=== PATIENT | female | born 1940 | race Two or more races ===

== ENCOUNTER 2016-07-02 20:55 | Emergency (ER) | payer MEDICARE, OTHER ==
[~2016-07-02] VITALS: Ht 165.1 cm; Wt 61.7 kg
[~2016-07-02 20:55] MED LIST: COZAAR; EFFEXOR; TRIAPOW43
[2016-07-02 21:15] VITALS: BP 160/98
[2016-07-02 22:18] LABS: Basophils # (auto) 0 uL; DEFINITIVE VIEW TRANSMISSION; Eosinophils # (auto) 0.7 uL; Hematocrit 35.2 % (36.0-46.0); Hemoglobin 12.1 g/dL (12.2-16.2); Lymphocytes # (auto) 1.2 uL; Lymphocytes % (auto) 23.1 % (10.0-50.0); Mean Corpuscular Hemoglobin 29.1 pg (28.0-32.0); Mean Corpuscular Hgb Conc. 34.3 g/dL (32.0-36.0); Mean Corpuscular Volume 84.8 fL (80.0-100.0); Monocytes # (auto) 0.4 uL; Monocytes % (auto) 8.6 % (0.0-12.0); Neutrophils # (auto) 2.7 uL; Neutrophils % (auto) 53.3 % (37.0-80.0); Platelet Count (auto) 204 10^3/uL (140-450); Red Cell Distribution Width 13.4 % (11.6-16.0); White Blood Cell 5.1 10^3/uL (4.4-10.8)
[2016-07-02 22:35] LABS: Albumin 3.3 g/dL (3.4-5.0); Anion Gap 10 (5-15); Aspartate Aminotransferase 13 U/L (15-37); BUN/Creatinine Ratio 23.3; Blood Urea Nitrogen 21 mg/dL (7-18); Calcium 8.6 mg/dL (8.5-10.1); Carbon Dioxide 24 mmol/L (21-32); Chloride 108 mmol/L (98-107); GFR African American 78 mL/min; GFR Non-African American 64 mL/min; Glucose 118 mg/dL (74-106); Potassium 3.3 mmol/L (3.5-5.1); Sodium 142 mmol/L (136-145)
[2016-07-02 22:37] LABS: Urine Bilirubin Negative (Negative); Urine Blood Negative /uL (Negative); Urine Color Yellow (Yellow); Urine Glucose Normal (Normal); Urine Ketone Negative (Negative); Urine Mucus FEW (None Seen); Urine Nitrite Negative (Negative); Urine RBC 1 /hpf (0 - 4); Urine Squamous Epithelial Cell FEW /hpf (<5); Urine Urobilinogen Normal (Negative)
[2016-07-02 22:41] LABS: Alkaline Phosphatase 118 U/L (45-117); Bilirubin, Total 0.2 mg/dL (0.2-1.0)
[2016-07-02 22:45] LABS: B-Type Natriuretic Peptide 17.16 pg/mL (0-100)
[2016-07-02 22:48] LABS: Temperature: 23.5 C (20.0-25.0)
== END 2016-07-03 01:11 | disposition left against medical advice (07) ==
LOC: ER 21:08
DX: R06.02 Shortness of breath (principal); Z53.21 Procedure and treatment not carried out due to patient leaving prior to being seen by health care provider
CPT/HCPCS: 36415; 71020; 80053; 81001; 83735; 83880; 84484; 85025; 85379; 93005

== ENCOUNTER 2016-07-03 15:02 | Emergency (ER) | payer MEDICARE, OTHER ==
[~2016-07-03] VITALS: Ht 167.6 cm; Wt 62.6 kg
[2016-07-03] MEDS ORDERED: POTASSIUM CHL 10% (20 MEQ/15ML) ORAL SOLN PO ONE (16:00)
[2016-07-03] MEDS ORDERED: ALBUTEROL SULF 2.5 MG/0.5ML(0.5%) NEB SOLN NEB ONE (16:00)
[2016-07-03] MEDS ORDERED: IPRATROPIUM BROM 0.5 MG/2.5ML INH SOL NEB ONE (16:00)
[2016-07-03] MEDS ORDERED: POTASSIUM CHL 20 Meq TABLET PO ONE (16:03)
[2016-07-03 16:18] VITALS: BP 150/84
== END 2016-07-03 18:31 | disposition home or self-care (01) ==
LOC: ER 15:20
DX: J45.901 Unspecified asthma with (acute) exacerbation (principal); N39.0 Urinary tract infection, site not specified; E87.6 Hypokalemia; E11.9 Type 2 diabetes mellitus without complications; J44.9 Chronic obstructive pulmonary disease, unspecified; E44.1 Mild protein-calorie malnutrition; Z68.22 Body mass index [BMI] 22.0-22.9, adult
CPT/HCPCS: 93005; 94640

== ENCOUNTER 2019-09-14 20:37 | Emergency (ER) | payer MEDICARE, OTHER ==
[~2019-09-14] VITALS: Ht 167.6 cm; Wt 60.8 kg
[2019-09-14] MEDS ORDERED: cloNIDine HCL 0.1 MG TAB PO ONE (21:15)
[2019-09-14 23:11] VITALS: BP 155/64
== END 2019-09-14 23:24 | disposition home or self-care (01) ==
LOC: ER 20:38
DX: L23.9 Allergic contact dermatitis, unspecified cause (principal); J44.9 Chronic obstructive pulmonary disease, unspecified; E11.9 Type 2 diabetes mellitus without complications; I10 Essential (primary) hypertension; Z90.49 Acquired absence of other specified parts of digestive tract

== ENCOUNTER 2020-08-06 10:57 | Inpatient (IN) | payer MEDICARE, OTHER ==
[~2020-08-06] VITALS: Ht 162.6 cm; Wt 59.0 kg
[2020-08-06] MEDS ORDERED: cloNIDine HCL 0.1 MG TAB PO ONE (11:15)
[2020-08-06 12:52] LABS: Urine WBC None Seen /hpf (0 - 5)
[2020-08-06 13:22] LABS: Urine Bacteria NONE SEEN /hpf (None Seen); Urine Blood Negative /uL (Negative); Urine Specific Gravity 1.008 (1.001-1.035)
[2020-08-06 13:23] LABS: Basophils # (auto) 0.1 10 ^3/uL (0-0.2); Basophils % (auto) 1.1 % (0.0-2.0); Eosinophils # (auto) 0.1 10 ^3/uL (0-0.8); Eosinophils % (auto) 2.4 % (0.0-7.0); Hematocrit 34.1 % (36.0-46.0); Hemoglobin 11.7 g/dL (12.2-16.2); Lymphocytes # (auto) 1.3 10 ^3/uL (0.4-5.4); Lymphocytes % (auto) 23.1 % (10.0-50.0); Mean Corpuscular Hemoglobin 30.2 pg (28.0-32.0); Mean Corpuscular Hgb Conc. 34.3 g/dL (32.0-36.0); Monocytes # (auto) 0.3 10 ^3/uL (0-1.3); Monocytes % (auto) 5.9 % (0.0-12.0); Neutrophils # (auto) 3.7 10 ^3/uL (1.6-8.6); Neutrophils % (auto) 67.5 % (37.0-80.0); Red Blood Cells 3.88 10^6/uL (4.0-5.20); Red Cell Distribution Width 14.6 % (11.8-14.3); White Blood Cell 5.5 10^3/uL (4.4-10.8)
[2020-08-06 13:32] LABS: INR 1.09 (0.9-1.15); Partial Thromboplastin Time 29.3 sec (23.0-31.2)
[2020-08-06 13:40] LABS: Albumin 3.4 g/dL (3.4-5.0); Anion Gap 4 (5-15); Blood Urea Nitrogen 16 mg/dL (7-18); Calcium 8.6 mg/dL (8.5-10.1); Carbon Dioxide 27 mmol/L (21-32); Chloride 109 mmol/L (98-107); Glucose 109 mg/dL (74-106); Magnesium 2.2 mg/dL (1.6-2.6); Potassium 3.9 mmol/L (3.5-5.1); Sodium 140 mmol/L (136-145)
[2020-08-06 13:42] LABS: Alanine Aminotransferase 29 U/L (13-56); Aspartate Aminotransferase 19 U/L (15-37); GFR African American 114 mL/min; GFR Non-African American 94 mL/min
[2020-08-06 13:47] LABS: Alkaline Phosphatase 71 U/L (45-117); Bilirubin, Total 0.6 mg/dL (0.2-1.0); Total Protein 7.2 g/dL (6.4-8.2)
[2020-08-06] MEDS ORDERED: IOHEXOL 350 MG/ML 100ML IJ ONE (14:46)
[2020-08-06] MEDS ORDERED: amLODIPine BESYLATE 5 MG TAB PO ONE (16:45)
[2020-08-06] MEDS ORDERED: MORPHINE SULFATE INJECTION 2 MG/ML SYRG IV PRN ×2 (16:45)
[2020-08-06] MEDS ORDERED: NITROGLYCERIN 0.4 MG SL TAB SL PRN (16:45)
[2020-08-06] MEDS ORDERED: FAMOTIDINE 20 MG TAB PO ONE (17:30)
[2020-08-06] MEDS: HYDROcodone-ACET 5/325MG TAB PO PRN (19:11)
[2020-08-06] MEDS: LABETALOL HCL 5 MG/ML 4ML SYRINGE IV PRN (20:03)
[2020-08-06] MEDS: ACETAMINOPHEN 500 MG TAB PO PRN (21:30)
[2020-08-06] MEDS ORDERED: CARV25TA PO (21:53)
[2020-08-06] MEDS ORDERED: CLON0.1T PO (21:57)
[2020-08-06] MEDS ORDERED: APIX2.5T PO (21:57)
[2020-08-06] MEDS ORDERED: BUSP10TA90 PO (21:58)
[2020-08-06 22:00] VITALS: BP 167/84
[2020-08-06] MEDS ORDERED: GABA300C10 PO (22:08)
[2020-08-06] MEDS ORDERED: BACL10TA PO (22:08)
[2020-08-06] MEDS ORDERED: ATOR40TA52 PO (22:08)
[2020-08-06] MEDS ORDERED: NIFE90TA49 PO (22:08)
[2020-08-06] MEDS ORDERED: MECL12.514 PO (22:08)
[2020-08-06] MEDS ORDERED: LOSA25TA38 PO (22:08)
[2020-08-06] MEDS ORDERED: DONE1TAB88 PO (22:08)
[2020-08-06] MEDS ORDERED: TEMAZEPAM 15 MG CAP PO ONE (22:45)
[2020-08-06] MEDS ORDERED: ONDANSETRON ODT 4 MG TAB PO ONE (22:45)
[2020-08-07 05:00] VITALS: BP 136/68
[2020-08-07] MEDS: LABETALOL HCL 5 MG/ML 4ML SYRINGE IV PRN ×4 (08:23→18:05)
[2020-08-07] MEDS: ACETAMINOPHEN 500 MG TAB PO PRN (08:23)
[2020-08-07 08:49] VITALS: BP 164/71
[2020-08-07] MEDS: FAMOTIDINE 20 MG TAB PO SCH (09:45)
[2020-08-07] MEDS ORDERED: LOSARTAN POTASSIUM 25 MG TAB PO SCH (10:00)
[2020-08-07] MEDS ORDERED: amLODIPine BESYLATE 5 MG TAB PO SCH (10:00)
[2020-08-07] MEDS: HYDROcodone-ACET 5/325MG TAB PO PRN (10:09)
[2020-08-07] MEDS: ONDANSETRON HCL 4 MG/2 ML VIAL IV PRN ×2 (12:14→20:48)
[2020-08-07 12:51] VITALS: BP 175/78
[2020-08-07] MEDS: ENOXAPARIN SOD 30 MG/0.3 ML SYRINGE SC SCH (16:10)
[2020-08-07 17:32] VITALS: BP 197/82
[2020-08-07] MEDS: CARVEDILOL 12.5 MG TAB PO SCH (21:08)
[2020-08-07] MEDS: GABAPENTIN 300 MG CAP PO SCH (21:08)
[2020-08-07] MEDS ORDERED: TEMAZEPAM 15 MG CAP PO ONE (21:15)
[2020-08-07 22:00] VITALS: BP 157/73
[2020-08-08 05:00] VITALS: BP 133/65
[2020-08-08 05:56] LABS: Basophils # (auto) 0 10 ^3/uL (0-0.2); Eosinophils # (auto) 0.1 10 ^3/uL (0-0.8); Eosinophils % (auto) 3.2 % (0.0-7.0); Hematocrit 32.8 % (36.0-46.0); Hemoglobin 11.5 g/dL (12.2-16.2); Lymphocytes # (auto) 1.5 10 ^3/uL (0.4-5.4); Lymphocytes % (auto) 32.8 % (10.0-50.0); Mean Corpuscular Hemoglobin 30.7 pg (28.0-32.0); Mean Corpuscular Volume 87.7 fL (80.0-100.0); Monocytes # (auto) 0.5 10 ^3/uL (0-1.3); Monocytes % (auto) 11.1 % (0.0-12.0); Neutrophils # (auto) 2.4 10 ^3/uL (1.6-8.6); Neutrophils % (auto) 51.9 % (37.0-80.0); Nucleated Red Blood Cells % 0.1 %; Red Blood Cells 3.74 10^6/uL (4.0-5.20); Red Cell Distribution Width 14.5 % (11.8-14.3); White Blood Cell 4.6 10^3/uL (4.4-10.8)
[2020-08-08 06:22] LABS: Magnesium 2.4 mg/dL (1.6-2.6); Potassium 3.9 mmol/L (3.5-5.1)
[2020-08-08] MEDS: GABAPENTIN 300 MG CAP PO SCH ×3 (06:23→21:55)
[2020-08-08 06:29] LABS: Albumin 3.5 g/dL (3.4-5.0); BUN/Creatinine Ratio 20.8; Bilirubin, Total 0.8 mg/dL (0.2-1.0); Calcium 8.9 mg/dL (8.5-10.1); Total Protein 6.8 g/dL (6.4-8.2)
[2020-08-08 09:17] VITALS: BP 190/79
[2020-08-08] MEDS: NIFEdipine ER 30 MG TAB PO SCH (09:21)
[2020-08-08] MEDS: CARVEDILOL 12.5 MG TAB PO SCH ×2 (09:21→21:56)
[2020-08-08] MEDS: FAMOTIDINE 20 MG TAB PO SCH (09:21)
[2020-08-08] MEDS: ENOXAPARIN SOD 30 MG/0.3 ML SYRINGE SC SCH (09:22)
[2020-08-08] MEDS ORDERED: LACTULOSE 20Gm/30ML SOLN PO ONE (12:45)
[2020-08-08 13:00] VITALS: BP 140/72
[2020-08-08] MEDS ORDERED: LOSARTAN POTASSIUM 25 MG TAB PO ONE (13:00)
[2020-08-08] MEDS ORDERED: LACTULOSE 20Gm/30ML SOLN PO PRN (13:00)
[2020-08-08 14:02] LABS: Alcohol, Urine < 3.0 mg/dL (0-10); Amphetamine Screen, Urine NEGATIVE (NEGATIVE); Barbiturate Scree,Urine NEGATIVE (NEGATIVE); Benzodiazephine Screen, Urine POSITIVE (NEGATIVE); Cocaine Screen, Urine NEGATIVE (NEGATIVE); Opiate Scree,Urine NEGATIVE (NEGATIVE); Phencyclidine Screen, Urine NEGATIVE (NEGATIVE)
[2020-08-08 14:06] LABS: Cannabinoid Screen, Urine POSITIVE (NEGATIVE)
[2020-08-08 16:29] VITALS: BP 141/74
[2020-08-08] MEDS: ACETAMINOPHEN 500 MG TAB PO PRN (18:54)
[2020-08-08] MEDS: busPIRone HCL 10 MG TAB PO SCH (21:55)
[2020-08-08] MEDS: DOCUSATE SOD 100 MG CAP PO SCH (21:55)
[2020-08-08] MEDS: APIXABAN 2.5 MG TAB PO SCH (21:56)
[2020-08-08] MEDS: DONEPEZIL HYDROCHLORIDE 5 MG TAB PO SCH (21:57)
[2020-08-08 22:00] VITALS: BP 158/77
[2020-08-09] MEDS: HYDROcodone-ACET 5/325MG TAB PO PRN ×3 (04:25→21:26)
[2020-08-09 05:00] VITALS: BP 139/73
[2020-08-09] MEDS: GABAPENTIN 300 MG CAP PO SCH ×2 (05:40→13:36)
[2020-08-09 09:00] VITALS: BP 145/61
[2020-08-09] MEDS: busPIRone HCL 10 MG TAB PO SCH ×2 (09:41→21:20)
[2020-08-09] MEDS: APIXABAN 2.5 MG TAB PO SCH ×2 (09:41→21:20)
[2020-08-09] MEDS: FAMOTIDINE 20 MG TAB PO SCH (09:41)
[2020-08-09] MEDS: NIFEdipine ER 30 MG TAB PO SCH (09:42)
[2020-08-09] MEDS: CARVEDILOL 12.5 MG TAB PO SCH ×2 (09:43→21:20)
[2020-08-09] MEDS: LOSARTAN POTASSIUM 25 MG TAB PO SCH (09:43)
[2020-08-09] MEDS: DOCUSATE SOD 100 MG CAP PO SCH (09:43)
[2020-08-09 13:00] VITALS: BP 150/63
[2020-08-09] MEDS: LABETALOL HCL 5 MG/ML 4ML SYRINGE IV PRN ×2 (15:21→17:49)
[2020-08-09 16:32] VITALS: BP 168/63
[2020-08-09 20:05] VITALS: BP 163/62
[2020-08-09] MEDS: GABAPENTIN 400 MG CAP PO SCH (21:18)
[2020-08-09] MEDS: DONEPEZIL HYDROCHLORIDE 5 MG TAB PO SCH (21:21)
[2020-08-09 21:56] VITALS: BP 171/76
[2020-08-10] MEDS: HYDROcodone-ACET 5/325MG TAB PO PRN (04:15)
[2020-08-10 05:03] VITALS: BP 149/65
[2020-08-10 06:14] LABS: Magnesium 2.6 mg/dL (1.6-2.6); Potassium 3.8 mmol/L (3.5-5.1)
[2020-08-10 09:00] VITALS: BP 152/73
[2020-08-10] MEDS: APIXABAN 2.5 MG TAB PO SCH (09:33)
[2020-08-10] MEDS: GABAPENTIN 400 MG CAP PO SCH (09:33)
[2020-08-10] MEDS: NIFEdipine ER 30 MG TAB PO SCH (09:34)
[2020-08-10] MEDS: FAMOTIDINE 20 MG TAB PO SCH (09:34)
[2020-08-10] MEDS: CARVEDILOL 12.5 MG TAB PO SCH (09:34)
[2020-08-10] MEDS: LOSARTAN POTASSIUM 25 MG TAB PO SCH (09:35)
[2020-08-10] MEDS: busPIRone HCL 10 MG TAB PO SCH (09:35)
[2020-08-10] MEDS ORDERED: NIFE90TA49 PO (11:05)
[2020-08-10 12:02] VITALS: BP 152/73
== END 2020-08-10 13:05 | disposition home health service (06) | DRG 305 ==
LOC: ER 10:57 → TELE 16:43 → TELE-WESTW 20:11
PROVIDERS: ADMIT Nurse Practitioner Acute Care; ATTEND Internal Medicine
DX: I16.9 Hypertensive crisis, unspecified (principal); R64 Cachexia; D64.9 Anemia, unspecified; I73.9 Peripheral vascular disease, unspecified; Z20.822 Contact with and (suspected) exposure to COVID-19; I25.10 Atherosclerotic heart disease of native coronary artery without angina pectoris; E11.41 Type 2 diabetes mellitus with diabetic mononeuropathy; D17.79 Benign lipomatous neoplasm of other sites; F12.90 Cannabis use, unspecified, uncomplicated; J44.9 Chronic obstructive pulmonary disease, unspecified; E11.51 Type 2 diabetes mellitus with diabetic peripheral angiopathy without gangrene; F32.9 Major depressive disorder, single episode, unspecified; G57.91 Unspecified mononeuropathy of right lower limb; I70.8 Atherosclerosis of other arteries; K59.00 Constipation, unspecified; Z86.718 Personal history of other venous thrombosis and embolism; Z90.710 Acquired absence of both cervix and uterus; Z90.49 Acquired absence of other specified parts of digestive tract; Z79.899 Other long term (current) drug therapy; Z79.891 Long term (current) use of opiate analgesic; Z79.01 Long term (current) use of anticoagulants; Z71.51 Drug abuse counseling and surveillance of drug abuser; Z68.22 Body mass index [BMI] 22.0-22.9, adult
CPT/HCPCS: 36415; 71045; 71275; 80053; 80061; 80307; 81001; 82306; 83735; 83880; 84132; 84443; 84484; 85025; 85049; 85379; 85610; 85730; 87426; 93005; 96374; 97110; 97116; 97530; G0378; J2405; J3490; Q0162

== ENCOUNTER 2021-12-07 17:43 | Emergency (ER) | payer MEDICARE, OTHER ==
[~2021-12-07 17:43] MED LIST changes: +APIX2.5T PO; +ATOR40TA52 PO; +BACL10TA PO; +BUSP10TA90 PO; +CARV25TA PO; +DONE1TAB88 PO; +GABA300C10 PO; +LOSA25TA38 PO; +MECL12.514 PO; +NIFE90TA49 PO
[2021-12-07] MEDS ORDERED: cloNIDine HCL 0.1 MG TAB PO ONE ×2 (19:30→21:00)
[2021-12-07] MEDS ORDERED: HYDROcodone-ACET 5/325MG TAB PO ONE (21:00)
[2021-12-07 22:44] VITALS: BP 164/73
== END 2021-12-07 22:46 | disposition home or self-care (01) ==
LOC: ER 17:43
DX: I10 Essential (primary) hypertension (principal); G89.29 Other chronic pain; M79.604 Pain in right leg; J44.9 Chronic obstructive pulmonary disease, unspecified; Z90.49 Acquired absence of other specified parts of digestive tract; Z90.710 Acquired absence of both cervix and uterus; Z79.899 Other long term (current) drug therapy
CPT/HCPCS: 93971

== ENCOUNTER → 2021-12-11 | Outpatient (CLI) | payer MEDICARE, OTHER | END | disposition home or self-care (01) | LOC: Rad HDHVI 13:34 | PROVIDERS: ATTEND Internal Medicine Cardiovascular Disease | DX: I08.0 Rheumatic disorders of both mitral and aortic valves (principal); I11.9 Hypertensive heart disease without heart failure | CPT/HCPCS: 93306 ==

== ENCOUNTER → 2021-12-15 | Outpatient (CLI) | payer MEDICARE, OTHER ==
[~2021-12-15] VITALS: Ht 165.1 cm; Wt 59.4 kg
[~2021-12-15] MED LIST changes: +ADENOSINE 50 MG in GIVE UN-DILUTED 0 ML IV ONE; +ADENOSINE 90 MG/30 ML INJ IV ONE; +cloNIDine HCL 0.1 MG TAB ONE
== END | disposition home or self-care (01) ==
LOC: Rad HDHVI 13:25
PROVIDERS: ATTEND Internal Medicine Cardiovascular Disease
DX: I25.10 Atherosclerotic heart disease of native coronary artery without angina pectoris (principal); I10 Essential (primary) hypertension; E78.5 Hyperlipidemia, unspecified; F17.210 Nicotine dependence, cigarettes, uncomplicated
CPT/HCPCS: 78452; 93005; 96374; 96375; A9500; J0153

== ENCOUNTER → 2022-08-11 | Outpatient (CLI) | payer MEDICARE, OTHER ==
[~2022-08-11] MED LIST changes: -ADENOSINE 50 MG in GIVE UN-DILUTED 0 ML IV ONE; -ADENOSINE 90 MG/30 ML INJ IV ONE; +GABA-1250 PO; -GABA300C10 PO; +LOSA25TA15 PO; -LOSA25TA38 PO; -MECL12.514 PO; +MECL1TAB31 PO; -NIFE90TA49 PO; +NIFE90TA75 PO; -cloNIDine HCL 0.1 MG TAB ONE
== END | disposition home or self-care (01) ==
LOC: Rad HDHVI 14:59
PROVIDERS: ATTEND Internal Medicine Cardiovascular Disease
DX: I70.203 Unspecified atherosclerosis of native arteries of extremities, bilateral legs (principal); R60.9 Edema, unspecified
CPT/HCPCS: 93880; 93925

== ENCOUNTER → 2022-09-14 | Outpatient (CLI) | payer MEDICARE, BC ==
[~2022-09-14] MED LIST changes: +READI-CAT 2 (BARIUM SULF)(VANILLA SMOOTHIE) 450ML ONE
== END | disposition home or self-care (01) ==
LOC: Rad HDHVI 10:05
PROVIDERS: ATTEND Internal Medicine Cardiovascular Disease
DX: D35.02 Benign neoplasm of left adrenal gland (principal); M47.816 Spondylosis without myelopathy or radiculopathy, lumbar region; I70.0 Atherosclerosis of aorta
CPT/HCPCS: 74176

== ENCOUNTER 2023-01-21 07:08 | Inpatient (IN) | payer MEDICARE, BC ==
[~2023-01-21] VITALS: Ht 152.4 cm; Wt 59.6 kg
[2023-01-21] VITALS (10 sets, daily range): BP systolic 138; BP diastolic 65; PULSE 111–129; RESP 16–21; TEMP 99.1; O2SAT 89–100
[~2023-01-21 07:08] MED LIST changes: +GABA-339 PO; +HYDR-4297 PO; +MECL-126 PO; -READI-CAT 2 (BARIUM SULF)(VANILLA SMOOTHIE) 450ML ONE; +SACU1TAB7 PO
[2023-01-21] MEDS ORDERED: SODIUM CHLORIDE 0.9% 1,000 ML IV ONE ×3 (07:45→08:00)
[2023-01-21] MEDS ORDERED: cefTRIAXone 1GM/50ML D5W 50 ML IV ONE ×2 (08:00→11:08)
[2023-01-21] MEDS ORDERED: metroNIDAZOLE 500MG/100ML 100 ML IV ONE (08:00)
[2023-01-21 08:06] LABS: Basophils # (auto) 0 10 ^3/uL (0-0.2); Basophils % (auto) 0.1 % (0.0-2.0); Eosinophils # (auto) 0 10 ^3/uL (0-0.8); Hematocrit 34.3 % (36.0-46.0); Hemoglobin 11.2 g/dL (12.2-16.2); Lymphocytes # (auto) 0.4 10 ^3/uL (0.4-5.4); Lymphocytes % (auto) 3.1 % (10.0-50.0); Mean Corpuscular Hemoglobin 28.3 pg (28.0-32.0); Mean Corpuscular Hgb Conc. 32.5 g/dL (32.0-36.0); Mean Corpuscular Volume 87.1 fL (80.0-100.0); Monocytes # (auto) 0.8 10 ^3/uL (0-1.3); Monocytes % (auto) 5.8 % (0.0-12.0); Neutrophils # (auto) 12.1 10 ^3/uL (1.6-8.6); Nucleated Red Blood Cells % 0.1 %; Red Blood Cells 3.94 10^6/uL (4.0-5.20); Red Cell Distribution Width 14.3 % (11.8-14.3); White Blood Cell 13.3 10^3/uL (4.4-10.8)
[2023-01-21 08:19] LABS: INR 1.06 (0.9-1.15); Partial Thromboplastin Time 34.1 SEC (24.5-34.5); Prothrombin Time 11.1 sec (9.3-11.8)
[2023-01-21 08:22] LABS: Alanine Aminotransferase 24 U/L (7-40); Albumin 4.1 g/dL (3.2-4.8); Alkaline Phosphatase 90 U/L (46-116); Anion Gap 13 (5-15); Aspartate Aminotransferase 14 U/L (13-40); BUN/Creatinine Ratio 38.7 (10.0-20.0); Blood Alcohol < 3.0 mg/dL (<10); Blood Urea Nitrogen 53 mg/dL (9-23); Calcium 9.2 mg/dL (8.5-10.1); Carbon Dioxide 19 mmol/L (20-30); Chloride 104 mmol/L (98-107); Glucose 170 mg/dL (74-106); Potassium 3.4 mmol/L (3.5-5.1); Sodium 136 mmol/L (136-145)
[2023-01-21 08:23] LABS: Bilirubin, Total 0.6 mg/dL (0.2-1.0); Total Protein 6.5 g/dL (5.7-8.2)
[2023-01-21 08:50] LABS: Magnesium 2.3 mg/dL (1.6-2.6)
[2023-01-21] MEDS ORDERED: ALBUTEROL SULF 2.5 MG/0.5ML(0.5%) NEB SOLN NEB PRN ×2 (10:45→11:15)
[2023-01-21] MEDS ORDERED: SODIUM CHLORIDE 0.9% 1,000 ML IV SCH (11:15)
[2023-01-21] MEDS ORDERED: ACETAMINOPHEN 325 MG TAB PO PRN (11:15)
[2023-01-21] MEDS ORDERED: MECLIZINE HCL 25 MG TAB PO PRN (11:15)
[2023-01-21] MEDS ORDERED: AZITHROMYCIN 500MG/ 250ML 250 ML IV ONE ×2 (11:15→11:31)
[2023-01-21] MEDS ORDERED: POTASSIUM EFFERVESENT TAB 25 MEQ PO ONE (11:15)
[2023-01-21 11:40] LABS: Urine Amorphous Crystal FEW /hpf (None Seen); Urine Bacteria FEW /hpf (None Seen); Urine Blood Negative /uL (Negative); Urine Clarity HAZY (Clear); Urine Color Yellow (Yellow); Urine Hyaline Cast FEW /lpf (0 - 2); Urine Protein, UAD 1+ (Negative); Urine Specific Gravity 1.017 (1.001-1.035); Urine Urobilinogen Normal (Negative); Urine WBC 6 /hpf (0 - 5); Urine pH 5.5 (5.0-8.0)
[2023-01-21] MEDS ORDERED: ALBUTEROL SULF 2.5 MG/0.5ML(0.5%) NEB SOLN ONE ×3 (11:42→22:08)
[2023-01-21] MEDS ORDERED: cefTRIAXone 1GM/50ML D5W 50 ML IV SCH (11:45)
[2023-01-21] MEDS: ALBUTEROL SULF 2.5 MG/0.5ML(0.5%) NEB SOLN NEB SCH ×3 (11:46→23:43)
[2023-01-21] MEDS ORDERED: POTASSIUM EFFERVESENT TAB 25 MEQ ONE (11:54)
[2023-01-21 12:23] LABS: Amphetamine Screen, Urine Neg (NEGATIVE); Barbiturate Scree,Urine Neg (NEGATIVE); Benzodiazephine Screen, Urine Neg (NEGATIVE); Cocaine Screen, Urine Neg (NEGATIVE)
[2023-01-21 12:24] LABS: Cannabinoid Screen, Urine Neg (NEGATIVE); Opiate Scree,Urine Pos (NEGATIVE); Phencyclidine Screen, Urine Neg (NEGATIVE)
[2023-01-21] MEDS ORDERED: metroNIDAZOLE 500MG/100ML 100 ML IV SCH (14:00)
[2023-01-21] MEDS ORDERED: busPIRone HCL 10 MG TAB ONE ×2 (14:44→22:15)
[2023-01-21] MEDS: busPIRone HCL 10 MG TAB PO SCH ×2 (14:45→22:19)
[2023-01-21] MEDS: IPRATROPIUM BROM 0.5 MG/2.5ML INH SOL NEB SCH ×3 (16:53→23:42)
[2023-01-21] MEDS ORDERED: IPRATROPIUM BROM 0.5 MG/2.5ML INH SOL ONE ×2 (18:20→22:08)
[2023-01-21] MEDS: SODIUM CHLORIDE 0.9% 1,000 ML IV SCH (18:32)
[2023-01-21] MEDS ORDERED: Sacubitril-Valsartan (Entresto 49-51 mg) 1 TAB PO SCH (22:00)
[2023-01-21] MEDS ORDERED: ACETAMINOPHEN 500 MG TAB PO ONE (22:15)
[2023-01-21] MEDS ORDERED: SACUBITRIL-VALSARTAN 24mg/26mg TAB PO ONE ×2 (22:15→22:27)
[2023-01-21] MEDS ORDERED: GABAPENTIN 300 MG CAP ONE (22:15)
[2023-01-21] MEDS ORDERED: APIXABAN 2.5 MG TAB ONE (22:18)
[2023-01-21] MEDS ORDERED: CARVEDILOL 12.5 MG TAB ONE (22:18)
[2023-01-21] MEDS ORDERED: BACLOFEN 10 MG TAB ONE (22:18)
[2023-01-21] MEDS: GABAPENTIN 300 MG CAP PO SCH (22:19)
[2023-01-21] MEDS: BACLOFEN 10 MG TAB PO SCH (22:19)
[2023-01-21] MEDS: APIXABAN 2.5 MG TAB PO SCH (22:19)
[2023-01-21] MEDS: CARVEDILOL 12.5 MG TAB PO SCH (22:21)
[2023-01-22] VITALS (18 sets, daily range): BP systolic 145–164; BP diastolic 72–90; PULSE 63–101; RESP 16–20; TEMP 97.6–98.2; O2SAT 91–100
[2023-01-22] MEDS ORDERED: IPRATROPIUM BROM 0.5 MG/2.5ML INH SOL ONE ×6 (02:05→21:42)
[2023-01-22] MEDS ORDERED: ALBUTEROL SULF 2.5 MG/0.5ML(0.5%) NEB SOLN ONE ×6 (02:05→21:42)
[2023-01-22] MEDS: IPRATROPIUM BROM 0.5 MG/2.5ML INH SOL NEB SCH ×6 (02:21→23:38)
[2023-01-22] MEDS: ALBUTEROL SULF 2.5 MG/0.5ML(0.5%) NEB SOLN NEB SCH ×6 (02:21→23:38)
[2023-01-22 04:35] LABS: Basophils # (auto) 0 10 ^3/uL (0-0.2); Basophils % (auto) 0.1 % (0.0-2.0); Eosinophils # (auto) 0 10 ^3/uL (0-0.8); Hematocrit 32.9 % (36.0-46.0); Hemoglobin 10.8 g/dL (12.2-16.2); Lymphocytes # (auto) 0.5 10 ^3/uL (0.4-5.4); Lymphocytes % (auto) 6.7 % (10.0-50.0); Mean Corpuscular Hemoglobin 28.8 pg (28.0-32.0); Mean Corpuscular Hgb Conc. 32.8 g/dL (32.0-36.0); Mean Corpuscular Volume 87.9 fL (80.0-100.0); Monocytes # (auto) 0.6 10 ^3/uL (0-1.3); Monocytes % (auto) 7.6 % (0.0-12.0); Neutrophils # (auto) 6.7 10 ^3/uL (1.6-8.6); Neutrophils % (auto) 85.6 % (37.0-80.0); Red Blood Cells 3.74 10^6/uL (4.0-5.20); Red Cell Distribution Width 14.7 % (11.8-14.3); White Blood Cell 7.8 10^3/uL (4.4-10.8)
[2023-01-22 04:38] LABS: Alanine Aminotransferase 20 U/L (7-40); Albumin 3.9 g/dL (3.2-4.8); Alkaline Phosphatase 84 U/L (46-116); Anion Gap 8 (5-15); Aspartate Aminotransferase 19 U/L (13-40); BUN/Creatinine Ratio 27.6 (10.0-20.0); Calcium 8.8 mg/dL (8.7-10.4); Carbon Dioxide 20 mmol/L (20-30); Chloride 111 mmol/L (98-107); Glucose 163 mg/dL (74-106); Sodium 139 mmol/L (136-145)
[2023-01-22 04:39] LABS: Bilirubin, Total 0.5 mg/dL (0.2-1.0); Total Protein 6.6 g/dL (5.7-8.2)
[2023-01-22 05:07] LABS: Blood Urea Nitrogen 24 mg/dL (9-23)
[2023-01-22] MEDS: busPIRone HCL 10 MG TAB PO SCH ×3 (06:00→22:59)
[2023-01-22] MEDS ORDERED: busPIRone HCL 10 MG TAB ONE ×3 (06:24→22:05)
[2023-01-22] MEDS ORDERED: hydrALAZINE HCL 20 MG/ML VL ONE ×3 (06:28→23:04)
[2023-01-22] MEDS: hydrALAZINE HCL 20 MG/ML VL IV PRN ×2 (07:07→23:07)
[2023-01-22] MEDS ORDERED: HYDROcodone-ACET 5/325MG TAB ONE ×3 (07:09→21:43)
[2023-01-22] MEDS: HYDROcodone-ACET 5/325MG TAB PO PRN ×3 (07:10→21:58)
[2023-01-22] MEDS ORDERED: cefTRIAXone 1GM/50ML D5W 50 ML IV SCH (09:00)
[2023-01-22] MEDS: SODIUM CHLORIDE 0.9% 1,000 ML IV SCH (09:10)
[2023-01-22] MEDS ORDERED: cefTRIAXone 1GM/50ML D5W 50 ML IV ONE (09:11)
[2023-01-22] MEDS: cefTRIAXone 1GM/50ML D5W 50 ML IV SCH (09:12)
[2023-01-22] MEDS: LOSARTAN POTASSIUM 25 MG TAB PO SCH (10:00)
[2023-01-22] MEDS ORDERED: DONEPEZIL HYDROCHLORIDE 5 MG TAB ONE (12:23)
[2023-01-22] MEDS ORDERED: APIXABAN 2.5 MG TAB ONE ×3 (12:23→22:09)
[2023-01-22] MEDS ORDERED: ENOXAPARIN SOD 30 MG/0.3 ML SYRINGE ONE (12:24)
[2023-01-22] MEDS ORDERED: GABAPENTIN 300 MG CAP ONE ×2 (12:25→22:09)
[2023-01-22] MEDS ORDERED: ATORVASTATIN 20 MG TAB ONE (12:25)
[2023-01-22] MEDS: GABAPENTIN 300 MG CAP PO SCH ×2 (12:28→22:59)
[2023-01-22] MEDS: ATORVASTATIN 20 MG TAB PO SCH (12:28)
[2023-01-22] MEDS: DONEPEZIL HYDROCHLORIDE 5 MG TAB PO SCH (12:28)
[2023-01-22] MEDS: ENOXAPARIN SOD 30 MG/0.3 ML SYRINGE SC SCH (12:29)
[2023-01-22] MEDS ORDERED: CARVEDILOL 12.5 MG TAB ONE (12:41)
[2023-01-22] MEDS ORDERED: AZITHROMYCIN 500MG/ 250ML 250 ML IV ONE (12:42)
[2023-01-22] MEDS ORDERED: BACLOFEN 10 MG TAB ONE (12:42)
[2023-01-22] MEDS: AZITHROMYCIN 500MG/ 250ML 250 ML IV SCH (12:47)
[2023-01-22] MEDS: BACLOFEN 10 MG TAB PO SCH ×2 (12:47→22:00)
[2023-01-22] MEDS: CARVEDILOL 12.5 MG TAB PO SCH ×2 (12:48→22:00)
[2023-01-22] MEDS: APIXABAN 2.5 MG TAB PO SCH ×2 (12:49→22:59)
[2023-01-22] MEDS ORDERED: hydrALAZINE HCL 10 MG TAB ONE (22:10)
[2023-01-23] VITALS (16 sets, daily range): BP systolic 151–187; BP diastolic 66–88; PULSE 67–88; RESP 16–20; TEMP 97.9–98.5; O2SAT 91–98
[2023-01-23] MEDS: SODIUM CHLORIDE 0.9% 1,000 ML IV SCH ×2 (01:20→18:09)
[2023-01-23] MEDS: IPRATROPIUM BROM 0.5 MG/2.5ML INH SOL NEB SCH ×6 (02:00→22:50)
[2023-01-23] MEDS: ALBUTEROL SULF 2.5 MG/0.5ML(0.5%) NEB SOLN NEB SCH ×6 (02:00→22:50)
[2023-01-23] MEDS: hydrALAZINE HCL 20 MG/ML VL IV PRN ×2 (05:35→20:27)
[2023-01-23] MEDS: busPIRone HCL 10 MG TAB PO SCH ×3 (05:36→20:31)
[2023-01-23] MEDS: HYDROcodone-ACET 5/325MG TAB PO PRN (08:38)
[2023-01-23] MEDS: cefTRIAXone 1GM/50ML D5W 50 ML IV SCH (09:36)
[2023-01-23] MEDS: DONEPEZIL HYDROCHLORIDE 5 MG TAB PO SCH (11:20)
[2023-01-23] MEDS: GABAPENTIN 300 MG CAP PO SCH ×2 (11:22→20:32)
[2023-01-23] MEDS: BACLOFEN 10 MG TAB PO SCH ×2 (11:22→20:35)
[2023-01-23] MEDS: CARVEDILOL 12.5 MG TAB PO SCH ×2 (11:22→20:32)
[2023-01-23] MEDS: ATORVASTATIN 20 MG TAB PO SCH (11:23)
[2023-01-23] MEDS: APIXABAN 2.5 MG TAB PO SCH (11:23)
[2023-01-23] MEDS: LOSARTAN POTASSIUM 25 MG TAB PO SCH (11:23)
[2023-01-23] MEDS: AZITHROMYCIN 500MG/ 250ML 250 ML IV SCH (11:24)
[2023-01-23] MEDS: ENOXAPARIN SOD 30 MG/0.3 ML SYRINGE SC SCH (11:24)
[2023-01-23 11:28] LABS: COVID19 ANTIGEN SOFIA FIA NEGATIVE (NEGATIVE)
[2023-01-24] VITALS (22 sets, daily range): BP systolic 124–186; BP diastolic 55–86; PULSE 70–91; RESP 18–19; TEMP 97.9–98.3; O2SAT 90–100
[2023-01-24] MEDS: IPRATROPIUM BROM 0.5 MG/2.5ML INH SOL NEB SCH ×6 (02:51→21:53)
[2023-01-24] MEDS: ALBUTEROL SULF 2.5 MG/0.5ML(0.5%) NEB SOLN NEB SCH ×6 (02:51→21:53)
[2023-01-24] MEDS: hydrALAZINE HCL 20 MG/ML VL IV PRN ×2 (04:23→23:05)
[2023-01-24] MEDS: busPIRone HCL 10 MG TAB PO SCH ×3 (05:00→21:34)
[2023-01-24] MEDS ORDERED: MECLIZINE HCL 25 MG TAB PO PRN (08:00)
[2023-01-24] MEDS: cefTRIAXone 1GM/50ML D5W 50 ML IV SCH (09:32)
[2023-01-24] MEDS: CARVEDILOL 12.5 MG TAB PO SCH ×2 (09:34→21:35)
[2023-01-24] MEDS: DONEPEZIL HYDROCHLORIDE 5 MG TAB PO SCH (09:34)
[2023-01-24] MEDS: BACLOFEN 10 MG TAB PO SCH ×2 (09:34→21:36)
[2023-01-24] MEDS: LOSARTAN POTASSIUM 25 MG TAB PO SCH (09:34)
[2023-01-24] MEDS: GABAPENTIN 300 MG CAP PO SCH ×2 (09:34→21:34)
[2023-01-24] MEDS: ENOXAPARIN SOD 40 MG/0.4 ML SYRINGE SC SCH (09:35)
[2023-01-24] MEDS: ATORVASTATIN 20 MG TAB PO SCH (09:35)
[2023-01-24] MEDS: SODIUM CHLORIDE 0.9% 1,000 ML IV SCH (09:36)
[2023-01-24] MEDS: HYDROcodone-ACET 5/325MG TAB PO PRN ×2 (12:43→20:01)
[2023-01-24] MEDS: AZITHROMYCIN 500MG/ 250ML 250 ML IV SCH (12:50)
[2023-01-24 14:23] LABS: Base Excess -2.7 mmol/L (-2.0-2.0)
[2023-01-25] VITALS (12 sets, daily range): BP systolic 141–160; BP diastolic 64–70; PULSE 69–82; RESP 17–19; TEMP 98.1–98.6; O2SAT 90–100
[2023-01-25] MEDS: IPRATROPIUM BROM 0.5 MG/2.5ML INH SOL NEB SCH ×4 (02:06→14:47)
[2023-01-25] MEDS: ALBUTEROL SULF 2.5 MG/0.5ML(0.5%) NEB SOLN NEB SCH ×4 (02:06→14:47)
[2023-01-25] MEDS: SODIUM CHLORIDE 0.9% 1,000 ML IV SCH (03:20)
[2023-01-25] MEDS: hydrALAZINE HCL 20 MG/ML VL IV PRN (05:07)
[2023-01-25] MEDS: busPIRone HCL 10 MG TAB PO SCH (05:07)
[2023-01-25] MEDS: cefTRIAXone 1GM/50ML D5W 50 ML IV SCH (09:28)
[2023-01-25] MEDS: HYDROcodone-ACET 5/325MG TAB PO PRN (09:28)
[2023-01-25] MEDS ORDERED: AZIT500T66 PO (09:29)
[2023-01-25] MEDS ORDERED: METH4PAK PO (09:29)
[2023-01-25] MEDS: ENOXAPARIN SOD 40 MG/0.4 ML SYRINGE SC SCH (09:31)
[2023-01-25] MEDS: GABAPENTIN 300 MG CAP PO SCH (09:31)
[2023-01-25] MEDS: DONEPEZIL HYDROCHLORIDE 5 MG TAB PO SCH (09:31)
[2023-01-25] MEDS: CARVEDILOL 12.5 MG TAB PO SCH (09:32)
[2023-01-25] MEDS: BACLOFEN 10 MG TAB PO SCH (09:32)
[2023-01-25] MEDS: LOSARTAN POTASSIUM 25 MG TAB PO SCH (09:32)
[2023-01-25] MEDS: ATORVASTATIN 20 MG TAB PO SCH (09:32)
[2023-01-25] MEDS: AZITHROMYCIN 500MG/ 250ML 250 ML IV SCH (12:36)
== END 2023-01-25 15:20 | disposition home or self-care (01) | DRG 871 ==
LOC: ER 07:08 → TELE 11:07 → TELE-CENTR 11:07
PROVIDERS: ADMIT Nurse Practitioner Family; ATTEND Family Medicine
DX: A41.9 Sepsis, unspecified organism (principal); G93.41 Metabolic encephalopathy; J18.9 Pneumonia, unspecified organism; J96.01 Acute respiratory failure with hypoxia; J44.0 Chronic obstructive pulmonary disease with (acute) lower respiratory infection; J44.1 Chronic obstructive pulmonary disease with (acute) exacerbation; N39.0 Urinary tract infection, site not specified; J45.901 Unspecified asthma with (acute) exacerbation; Z20.822 Contact with and (suspected) exposure to COVID-19; K52.9 Noninfective gastroenteritis and colitis, unspecified; E87.6 Hypokalemia; R73.9 Hyperglycemia, unspecified; I10 Essential (primary) hypertension; E78.00 Pure hypercholesterolemia, unspecified; F32.A Depression, unspecified; F41.9 Anxiety disorder, unspecified; G89.4 Chronic pain syndrome; I25.10 Atherosclerotic heart disease of native coronary artery without angina pectoris; Z95.5 Presence of coronary angioplasty implant and graft; Z90.710 Acquired absence of both cervix and uterus
CPT/HCPCS: 36415; 36600; 71045; 71275; 73030; 80053; 80307; 80320; 81001; 82805; 82962; 83036; 83605; 83735; 84132; 84484; 85025; 85379; 85610; 85730; 87040; 87045; 87086; 87177; 87426; 87427; 87493; 93005; 93970; 94640; 97110; 97116; 97163; G0378

== ENCOUNTER 2024-02-29 14:18 | Emergency (ER) | payer MEDICARE, BC ==
[~2024-02-29] VITALS: Ht 162.6 cm; Wt 64.6 kg
[~2024-02-29 14:18] MED LIST changes: +AZIT500T66 PO; +CARV-217 PO; -CARV25TA PO; -COZAAR; -EFFEXOR; -GABA-339 PO; -HYDR-4297 PO; +LOSA-533 PO; -LOSA25TA15 PO; -MECL1TAB31 PO; +METH4PAK PO; -NIFE90TA75 PO; -TRIAPOW43
--- NOTE | 2024-02-29 15:49 | DVH ---
CLINICAL INDICATION: fall TECHNIQUE: 3 radiographic views of the left shoulder were obtained. Comparison: XY L SHOULDER 2+ VIEW XRAY on DOS: 01/21/23 FINDINGS/IMPRESSION: There is no evidence of acute fracture or dislocation. The visualized joint space is well maintained. The alignment is anatomical. Surgical clips are noted over the left lower neck. Lower cervical spine fixation hardware is noted.
--- NOTE | 2024-02-29 16:15 | DVH ---
XY PELVIS AP HISTORY: fall TECHNICAL DATA: Frontal view was obtained of the pelvis. COMPARISON: None FINDINGS: There is no abnormality involving the bony pelvis. The sacroiliac joints appear normal. There is no a bnormality of the symphysis pubis. The hip joint spaces are symmetric. The proximal femurs demonstrat e no abnormality. Lumbar spinal hardware is noted. IMPRESSION: No acute fracture or dislocation of the pelvis.
--- NOTE | 2024-02-29 16:17 | DVH ---
XY R FEMUR XRAY, INDICATION: FALL TECHNICAL DATA: Frontal and lateral views were obtained of the right femur. COMPARISON: None FINDINGS: IMPRESSION: Right femur intramedullary kourtney with distal cerclage wires and knee arthoplasty appear intact. There i s an old distal femur fracture. Atherosclerotic calcifications are noted.
--- NOTE | 2024-02-29 16:19 | DVH ---
EXAM: CT HEAD WITHOUT CONTRAST HISTORY: fall COMPARISON: None TECHNIQUE: Axial images of the head were obtained and reformatted in coronal and sagittal planes. All CT scans at this medical facility are performed using dose modulation techniques as appropriate t o a performed exam including the following: Automated exposure control was utilized; adjustment of th e MA and/or KV according to patient size; and use of iterative reconstruction technique. CT Dose: CTDI volume is 54 mGy. Dose-length product is 985 mGy*cm FINDINGS: There is age concordant parenchymal volume loss. There is no evidence of acute intracranial hemorrhag e, mass, mass effect midline shift. There is no hydrocephalus or extra-axial fluid collection. Driver- white matter differentiation is maintained. There is moderate opacification of the maxillary sinuses, [id number]. Mastoid air cells are clear. The calvarium is intact. IMPRESSION: 1. No acute intracranial process. HS:Y
--- NOTE | 2024-02-29 16:40 | ED.PDOC ---
Back pain HPI HPI Comments Presents for a fall x 1 day slid on plastic bag and landed on her side Fell forward with hands extended then rolled C/o Right hip and left shoulder pain Denies hitting head Not on thinners Chief Complaint: Fall Injury Time Seen by MD: 15:20 Primary Care Provider: GENESIS Reviewed Notes: Nurses Notes, Medications Allergies: Coded Allergies: NO KNOWN ALLERGIES (Unverified , 05/28/10) Home Meds Active Scripts Methylprednisolone (Medrol Dosepak) 4 Mg Kali, 4 MG PO UD, #21 TAB UAD Prov:ORLANDO PARSON MD 01/25/23 Azithromycin (Azithromycin) 500 Mg Tab, 1 TAB PO DAILY, #7 TAB Prov:ORLANDO PARSON MD 01/25/23 Reported Medications Baclofen (Baclofen) 10 Mg Tab, 1 TAB PO BID 09/01/22 Meclizine HCl (Meclizine Hydrochloride) 25 Mg Tab, 1 TAB PO BIDPRN PRN for FOR C HEST PAIN 09/01/22 Sacubitril-Valsartan (Entresto 49-51 mg) 1 Tab Tab, 1 TAB PO BID 09/01/22 Donepezil Hydrochloride (DONEPEZIL HCL) 10 Mg Tab, 1 TAB PO DAILY 09/01/22 Atorvastatin Calcium (ATORVASTATIN CALCIUM) 40 Mg Tab, 1 TAB PO DAILY 09/01/22 Losartan Potassium (Losartan Potassium) 25 Mg Tab, PO DAILY for 30 Days, MG 08/06/20 Gabapentin (Gabapentin) 300 Mg Cap, 300 MG PO TID for 30 Days, MG 08/06/20 Buspirone Hcl (Buspirone Hcl) 10 Mg Tab, 10 MG PO TID for 30 Days, MG 08/06/20 Apixaban Base (ELIQUIS) 2.5 Mg Tab, 2.5 MG PO BID, TAB 08/06/20 Carvedilol (Coreg) 25 Mg Tab, 25 MG PO BID, TAB 08/06/20 Information Source: Patient Mode of Arrival: Ambulatory Past Medical History PAST MEDICAL HISTORY: Anxiety, Asthma, CAD, COPD, Depression, High Lipids, HTN, UTI'S Surgical History: Appendectomy, Hysterectomy, PTCA 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: No Pertinent 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 Family History Family History: Reviewed,noncontributory to illness Social History Smoker: Non-Smoker Alcohol: Denies ETOH Use Drugs: Denies Drug Use Lives In: Home All Other Systems: Reviewed and Negative (Per HPI) Physical Exam General Appearance: No Apparent Distress, Normal HEENT: Normal ENT Inspection, Pharynx Normal, TMs Normal Neck: Full Range of Motion, Non-Tender, Normal, Normal Inspection Respiratory: Chest Non-Tender, Lungs Clear, No Accessory Muscle Use, No Respiratory Distress, Normal Breath Sounds Cardiovascular: No Edema, No JVD, No Murmur, No Gallop, Normal Peripheral Pulses, Regular Rate/Rhythm Breast Exam: Deferred Gastrointestinal: No Organomegaly, Non Tender, No Pulsatile Mass, Normal Bowel Sounds, Soft Genitalia: Deferred Pelvic: Deferred Rectal: Deferred Extremities: No calf tenderness, Normal capillary refill, Normal inspection, Normal range of motion, Non-tender, No pedal edema Musculoskeletal : Apperance: Normal 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 Was a procedure done?: No Back Pain Differential Dx Differential Diagnosis: Fracture, Musculoskeletal Pain X-Ray, Labs, Meds, VS Vital Signs Date Time Temp Pulse Resp B/P (MAP) Pulse Ox O2 Delivery O2 Flow Rate FiO2 02/29/24 17:22 98.6 80 16 116/62 (80) 96 98.6 02/29/24 15:46 79 18 96 Room Air 02/29/24 15:46 99.1 79 18 116/58 (77) 96 99.1 02/29/24 14:38 99.0 76 18 118/56 (76) 94 X-Ray, Labs, Meds, VS Comment I considered cauda equina, spinal cord compression, vertebral malignancy/mets, acute spinal fracture, vertebral osteomyelitis, epidural abscess, infected or obstructed kidney stone, however this is less likely as the patient does not present with lower back pain red flags symptoms such as bowel or bladder dysfunction, saddle anesthesia, paresthesia, and without any history of malignancy or recent back trauma or spinal interventions. Therefore further imaging studies such as a lumbar MRI were not indicated on today's visit. Presentation most consistent with nonemergent musculoskeletal etiology versus nonemergent disc herniation. ED workup: reassuring. Will follow up at this time Disposition: Discharge. Strict return precautions discussed with the patient with full understanding. Supportive care advised (rest, ice, heat, NSAIDs, stretching exercises) Massage muscles with cold pack or ice for 20 minutes 4 times per day. Usually most useful if there is swelling during the first 48 hours Heating pad on the most painful area for 20 minutes to relieve muscle spasm Sleep and the most comfortable sleeping position (usually on the side with knees bent) Light stretching, no strenuous activity, avoid frequent bending, avoid carrying heavy objects Discussed possible benefits of yoga and acupuncture Return precautions discussed including Inability to walk/bear weight Paresthesia/weakness/leg pain Fecal/urinary incontinence Any worsening symptoms Time of 1ST Reevaluation: 16:00 Reevaluation 1ST: Improved Patient Education/Counseling: Diagnosis, Treatment Family Education/Counseling: Diagnosis, Treatment Departure 1 Departure Time of Disposition: 16:44 Impression: Primary Impression: Right hip pain Additional Impressions: Left shoulder pain Qualified Codes: M25.512 - Pain in left shoulder Fall Qualified Codes: W19.XXXA - Unspecified fall, initial encounter Disposition: HOME / SELF CARE / HOMELESS Condition: Stable Critical Care Note Critical Care Time?: No Stability Stability form required: No Heart Score Heart Score: Heart Score Response (Comments) Value History N/A 0 EKG N/A 0 Age N/A 0 Risk Factors N/A 0 Troponin N/A 0 Total 0 ROBEL MONAE NP Feb 29, 2024 16:40
[2024-02-29 17:22] VITALS: BP 116/62; PULSE 80; RESP 16; TEMP 98.6; O2SAT 96
== END 2024-02-29 17:23 | disposition home or self-care (01) ==
LOC: ER 14:18
DX: M25.551 Pain in right hip (principal); M25.512 Pain in left shoulder; R51.9 Headache, unspecified; I10 Essential (primary) hypertension; I25.10 Atherosclerotic heart disease of native coronary artery without angina pectoris; Z79.01 Long term (current) use of anticoagulants; Z79.899 Other long term (current) drug therapy; Z87.440 Personal history of urinary (tract) infections; Z90.49 Acquired absence of other specified parts of digestive tract; Z90.710 Acquired absence of both cervix and uterus; W19.XXXA Unspecified fall, initial encounter; Y93.89 Activity, other specified; Y92.89 Other specified places as the place of occurrence of the external cause; Y99.8 Other external cause status
CPT/HCPCS: 70450; 72170; 73030

== ENCOUNTER → 2024-03-21 | Outpatient (CLI) | payer MEDICARE, BC ==
--- NOTE | 2024-03-21 13:26 | DVH ---
CLINICAL INDICATION: RIGHT HIP PAIN TECHNIQUE: 1 radiographic views of the pelvis and 2 views of the right hip were obtained. Comparison: none FINDINGS/IMPRESSION: There is no evidence of acute fracture or dislocation. The visualized joint space is well maintained. The alignment is anatomical. There is no radiopaque foreign body.
== END | disposition home or self-care (01) ==
LOC: Rad HDHVI 12:00
PROVIDERS: ATTEND Internal Medicine Cardiovascular Disease
DX: M25.551 Pain in right hip (principal)

== ENCOUNTER → 2024-05-07 | Outpatient (CLI) | payer MEDICARE, BC ==
--- NOTE | 2024-05-07 16:44 | DVHSR ---
APPROVED REPORT EXAM: Two-dimensional and M-mode echocardiogram with Doppler and color Doppler. DIMENSIONS LVDd4.5 (3.8-5.7cm)LA (2D)5.0 (1.9-4.0cm)Aortic Root3.3 (2.0-3.7cm) LVDs3.0 (2.5-4.0cm)LA (MM) (1.9-4.0cm)Aortic Cusp Exc1.0 (1.5-2.0cm) EF (%) 61.0 (55-70%)Rt. Atrium3.6 (1.9-4.0cm)Asc. Aorta cm IVSd1.0 (0.7-1.1cm)RV (D)2.9 (1.8-2.4cm) PWd1.1 (0.7-1.1cm) Mitral Valve MitralMitral Stenosis E wave0.77m/sMV Mean GR.mmHg A wave1.06m/sMV Peak GR.26mmHg E/A ratio0.72D MVAcm2 DECEL [id number] 1/2 [place] Aortic Valve Aortic ValveAortic Stenosis V10.78m/Rowdy Mean GR.23mmHg V23.21m/Rowdy Peak GR.41mmHg AI P 1/2 Xwob073.27ms Pulmonic Valve V20.76m/s Tricuspid Valve TR Velocity2.07m/s [id number] LEFT VENTRICLE The Ejection Fraction is >55%. ATRIA The left atrium is mildly dilated. The right atrium size is normal. MITRAL VALVE Mitral annular calcification is mild. Mitral regurgitation is mild. PULMONIC VALVE The pulmonic valve is not well visualized. TRICUSPID VALVE The tricuspid valve is grossly normal. There is trace tricuspid regurgitation. AORTIC VALVE The aortic valve is mildlysclerotic. There is mild aortic regurgitation. GREAT VESSELS The aortic root is normal size. PERICARDIAL EFFUSION There is no pericardial effusion. Conclusion EF >55% MILD MR MILD AV CALCIFICATION MILD MILD AI
== END | disposition home or self-care (01) ==
LOC: Rad HDHVI 11:04
PROVIDERS: ATTEND Internal Medicine Cardiovascular Disease
DX: I08.0 Rheumatic disorders of both mitral and aortic valves (principal); I50.43 Acute on chronic combined systolic (congestive) and diastolic (congestive) heart failure
CPT/HCPCS: 93306

== ENCOUNTER → 2024-05-11 | Outpatient (CLI) | payer MEDICARE, BC ==
[~2024-05-11] VITALS: Ht 162.6 cm; Wt 67.1 kg
[~2024-05-11] MED LIST changes: +ADENOSINE 56 MG in GIVE UN-DILUTED 0 ML IV ONE; +ADENOSINE 90 MG/30 ML INJ IV ONE
== END | disposition home or self-care (01) ==
LOC: Rad HDHVI 09:28
PROVIDERS: ATTEND Internal Medicine Cardiovascular Disease
DX: I49.1 Atrial premature depolarization (principal); I45.10 Unspecified right bundle-branch block; I25.10 Atherosclerotic heart disease of native coronary artery without angina pectoris; I11.0 Hypertensive heart disease with heart failure; I50.43 Acute on chronic combined systolic (congestive) and diastolic (congestive) heart failure; R06.02 Shortness of breath; R42 Dizziness and giddiness; E78.00 Pure hypercholesterolemia, unspecified; F17.210 Nicotine dependence, cigarettes, uncomplicated; Z82.49 Family history of ischemic heart disease and other diseases of the circulatory system
CPT/HCPCS: 78452; 93017; A9500; J0153; 93005; 96374; 96375

== ENCOUNTER → 2024-05-14 | Outpatient (CLI) | payer MEDICARE, BC ==
[~2024-05-14] MED LIST changes: -ADENOSINE 56 MG in GIVE UN-DILUTED 0 ML IV ONE; -ADENOSINE 90 MG/30 ML INJ IV ONE
== END | disposition home or self-care (01) ==
LOC: Rad HDHVI 09:52
PROVIDERS: ATTEND Internal Medicine Cardiovascular Disease
DX: I67.2 Cerebral atherosclerosis (principal); I10 Essential (primary) hypertension
CPT/HCPCS: 93880

== ENCOUNTER 2024-07-03 10:29 | Outpatient (CLI) | payer MEDICARE, BC ==
[2024-07-03 10:55] VITALS: BP 101/59; PULSE 65; RESP 18; O2SAT 91
[2024-07-03] MEDS: cefTRIAXone 1GM/50ML D5W 50 ML IV ONE ×2 (11:28→11:38)
[2024-07-03 12:15] VITALS: BP 125/62; PULSE 68; RESP 18; O2SAT 91
== END 2024-07-03 17:00 | disposition home or self-care (01) ==
LOC: CHF HDHVI 10:29
PROVIDERS: ATTEND Internal Medicine Cardiovascular Disease
DX: N39.0 Urinary tract infection, site not specified (principal); J44.9 Chronic obstructive pulmonary disease, unspecified; I11.0 Hypertensive heart disease with heart failure; I50.43 Acute on chronic combined systolic (congestive) and diastolic (congestive) heart failure; I25.10 Atherosclerotic heart disease of native coronary artery without angina pectoris; E78.00 Pure hypercholesterolemia, unspecified; Z87.891 Personal history of nicotine dependence
CPT/HCPCS: 94640; 96365; G0463; J0696

== ENCOUNTER 2024-08-27 11:14 | Outpatient (CLI) | payer MEDICARE, BC ==
[2024-08-27 11:26] VITALS: BP 109/50; PULSE 72; RESP 18; O2SAT 95
[2024-08-27 11:58] VITALS: BP 127/52; PULSE 66; RESP 17; O2SAT 93
--- NOTE | 2024-08-27 14:03 | DVH ---
EXAM: XY CHEST TWO VIEWS ROUTINE CLINICAL HISTORY: SOB COMPARISON: None TECHNIQUE: Frontal and lateral view of the chest was obtained FINDINGS: Lines and Tubes: None Lungs: No focal consolidation. Pleura: No effusion. No pneumothorax. Cardiomediastinal contours: Unremarkable. Atherosclerotic vascular calcifications of the thoracic ao rta are noted. Bones: No acute osseous abnormality. IMPRESSION: No acute cardiopulmonary disease.
--- NOTE | 2024-08-27 19:06 | DVH ---
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 During the uneventful, intravenous administration of c ontrast material, multislice data acquisition was obtained through the abdomen and pelvis. The data s et was subsequently reconstructed into axial images. Images were reviewed on a work station using a c ombination of axial and multiplanar using a variety of window levels and settings. Radiation Dose Information: CT Dose: CTDI volume is 7.22 mGy. Dose-length product is 267.02 mGy*cm FINDINGS: Lung Bases: No acute or significant lung base finding. Cardiac size upper limits of normal. No pleur al or pericardial effusion. Liver: The liver is normal in size. No focal lesions. Normal hepatic vascular enhancement. Gallbladder and Biliary Tree: Unremarkable Spleen: Unremarkable Pancreas: The pancreas is normal in appearance without focal lesions or abnormal enhancement. Adrenal Glands: Left adrenal nodule measuring 3.5 x 3.1 cm with tissue density 15-19 Hounsfield units Kidneys: Kidneys demonstrate normal symmetric enhancement without focal lesions, calculi or hydroneph rosis. Bladder: Unremarkable Bowel: The stomach is grossly normal in appearance. Small to moderate hiatal hernia measuring 5.8 x 5 .6 cm. Small bowel and colon are normal in caliber and distribution. The appendix is not visualized; however, no secondary findings of acute appendicitis identified. Ascites: Absent Lymphadenopathy: No mesenteric, retroperitoneal or periportal lymphadenopathy. Abdominal Wall and Mesentery: Unremarkable. Vasculature: The visualized abdominal aorta is normal in size and caliber. Abdominal and pelvic vess els demonstrate normal enhancement. Pelvic Organs: Unremarkable Musculoskeletal: No aggressive focal bony lesions, acute fractures or dislocation. Soft tissues: Unremarkable. IMPRESSION: 1. 5.8 x 5.6 cm hiatal hernia. 2. No pulmonary nodules or masses. 3. Small mural thrombus midthoracic aorta. 17 mm by 15 mm by 6 mm. Located at the level of T6-T7. 4. No pulmonary embolus no pulmonary artery hypertension. All CT scans at this medical facility are performed using dose modulation techniques as appropriate t o a performed exam including the following: Automated exposure control was utilized; adjustment of th e MA and/or KV according to patient size; and use of iterative reconstruction technique.
== END 2024-08-27 17:00 | disposition home or self-care (01) ==
LOC: Rad HDHVI 11:14
PROVIDERS: ATTEND Internal Medicine Cardiovascular Disease
DX: I70.0 Atherosclerosis of aorta (principal); R06.02 Shortness of breath; R05.3 Chronic cough; I21.29 ST elevation (STEMI) myocardial infarction involving other sites; K44.9 Diaphragmatic hernia without obstruction or gangrene
CPT/HCPCS: 71046; 71260; G0463; Q9967

== ENCOUNTER 2024-08-29 10:19 | Outpatient (CLI) | payer MEDICARE, BC ==
[2024-08-29 10:30] VITALS: BP 97/55; PULSE 87; RESP 16; O2SAT 94
[2024-08-29] MEDS: IRON SUCROSE 20 mg/ml 10ml VIAL IV ONE (11:04)
[2024-08-29] MEDS: IRON SUCROSE COMPLEX 110 ML IV ONE (11:19)
[2024-08-29 12:35] VITALS: BP 149/71; PULSE 81; RESP 16; O2SAT 94
== END 2024-08-29 17:00 | disposition home or self-care (01) ==
LOC: CHF HDHVI 10:19
PROVIDERS: ATTEND Internal Medicine Cardiovascular Disease
DX: D50.0 Iron deficiency anemia secondary to blood loss (chronic) (principal); K44.9 Diaphragmatic hernia without obstruction or gangrene; I11.0 Hypertensive heart disease with heart failure; I50.43 Acute on chronic combined systolic (congestive) and diastolic (congestive) heart failure; I25.10 Atherosclerotic heart disease of native coronary artery without angina pectoris; J44.9 Chronic obstructive pulmonary disease, unspecified; E78.00 Pure hypercholesterolemia, unspecified; Z87.891 Personal history of nicotine dependence
CPT/HCPCS: 96365; G0463; J1756

== ENCOUNTER 2024-09-05 10:53 | Outpatient (CLI) | payer MEDICARE, BC ==
[2024-09-05 11:00] VITALS: BP 116/61; PULSE 86; RESP 16; O2SAT 95
[2024-09-05] MEDS: IRON SUCROSE 20 mg/ml 10ml VIAL IV ONE (11:07)
[2024-09-05] MEDS: IRON SUCROSE COMPLEX 110 ML IV ONE (11:09)
[2024-09-05 12:15] VITALS: BP 120/63; PULSE 68; RESP 16; O2SAT 95
== END 2024-09-05 17:00 | disposition home or self-care (01) ==
LOC: CHF HDHVI 10:53
PROVIDERS: ATTEND Internal Medicine Cardiovascular Disease
DX: D50.0 Iron deficiency anemia secondary to blood loss (chronic) (principal); I11.0 Hypertensive heart disease with heart failure; I50.43 Acute on chronic combined systolic (congestive) and diastolic (congestive) heart failure; I25.10 Atherosclerotic heart disease of native coronary artery without angina pectoris; J44.9 Chronic obstructive pulmonary disease, unspecified; E78.00 Pure hypercholesterolemia, unspecified; Z87.891 Personal history of nicotine dependence
CPT/HCPCS: 96365; G0463; J1756

== ENCOUNTER 2024-09-13 10:02 | Outpatient (CLI) | payer MEDICARE, BC ==
[2024-09-13 10:15] VITALS: BP 113/59; PULSE 81; RESP 16; O2SAT 96
[2024-09-13] MEDS: IRON SUCROSE 20 mg/ml 10ml VIAL IV ONE (10:16)
[2024-09-13] MEDS: IRON SUCROSE COMPLEX 110 ML IV ONE (10:30)
[2024-09-13 11:34] VITALS: BP 113/56; PULSE 87; RESP 16; O2SAT 96
== END 2024-09-13 17:00 | disposition home or self-care (01) ==
LOC: CHF HDHVI 10:02
PROVIDERS: ATTEND Internal Medicine Cardiovascular Disease
DX: D50.9 Iron deficiency anemia, unspecified (principal); I11.0 Hypertensive heart disease with heart failure; I50.43 Acute on chronic combined systolic (congestive) and diastolic (congestive) heart failure; E11.51 Type 2 diabetes mellitus with diabetic peripheral angiopathy without gangrene; E11.40 Type 2 diabetes mellitus with diabetic neuropathy, unspecified; J44.9 Chronic obstructive pulmonary disease, unspecified; I25.10 Atherosclerotic heart disease of native coronary artery without angina pectoris; E78.00 Pure hypercholesterolemia, unspecified; F41.9 Anxiety disorder, unspecified; F32.A Depression, unspecified; R53.1 Weakness; R06.02 Shortness of breath; R53.83 Other fatigue; Z87.440 Personal history of urinary (tract) infections; Z79.899 Other long term (current) drug therapy; Z87.891 Personal history of nicotine dependence
CPT/HCPCS: 96365; G0463; J1756